=== PATIENT | female | born 1975 | race Caucasian/White ===

== ENCOUNTER 2021-05-09 23:48 | Inpatient (IN) | payer OTHER ==
[~2021-05-09] VITALS: Ht 157.5 cm; Wt 77.6 kg
[~2021-05-09 23:48] MED LIST: ACET-784 PO
[2021-05-10 00:52] LABS: COVID AG,FIA SOURCE NASOPHARYNGEAL
[2021-05-10] MEDS ORDERED: HYDROCODONE/ACETAMINOPHEN 5-325 MG TABLET PO ONE (02:45)
[2021-05-10] MEDS ORDERED: IBUPROFEN 600 MG TABLET PO ONE (02:45)
[2021-05-10] MEDS ORDERED: GuaiFENesin/D-METHORPHAN [SUGAR-FREE] 200-20MG/10 ML SYRUP UDCUP PO ONE (02:45)
[2021-05-10 04:50] LABS: BASOPHILS % (AUTO) 0.4 % (0.0-2.0); EOSINOPHILS % (AUTO) 0.4 % (1.0-6.0); HEMATOCRIT 32.9 % (36-46); HEMOGLOBIN 10.8 g/dL (12.0-16.0); LYMPHOCYTES # (AUTO) 0.9 K/uL (1.0-4.8); LYMPHOCYTES % (AUTO) 16.6 % (22.0-44.0); MEAN CORPUSCULAR HEMOGLOBIN 22.3 pg (26.0-34.0); MEAN CORPUSCULAR HGB CONC 32.8 G/dL (31.0-37.0); MEAN CORPUSCULAR VOLUME 68 fL (80-100); MONOCYTES # (AUTO) 0.4 K/uL (0.1-1.0); MONOCYTES % (AUTO) 7.5 % (2.0-9.0); NEUTROPHILS # (AUTO) 3.9 K/uL (1.8-7.7); NEUTROPHILS % (AUTO) 75.1 % (40.0-70.0); PLATELET COUNT (AUTO) 256 K/uL (150-450); RED BLOOD CELL COUNT(AUTO) 4.85 MIL/uL (4.00-5.20); RED CELL DISTRIBUTION WIDTH 19.7 % (11.5-14.5)
[2021-05-10 05:11] LABS: CALCIUM, TOTAL 8.4 mg/dL (8.8-10.5); POTASSIUM 3.5 mmol/L (3.5-5.1)
[2021-05-10 05:19] LABS: LACTIC ACID 0.9 mmol/L (0.4-2.0)
[2021-05-10 05:26] LABS: ALBUMIN 2.9 g/dL (3.4-5.0); BILIRUBIN,TOTAL 0.3 mg/dL (0.1-1.0); TOTAL PROTEIN, SERUM 6.9 g/dL (6.4-8.2)
[2021-05-10] MEDS ORDERED: DEXAMETHASONE SOD PHOS 4 MG/ML 5 ML VIAL IVP ONE (05:45)
[2021-05-10] MEDS ORDERED: ONDANSETRON HCL 4 MG/2 ML VIAL IVP PRN (06:30)
[2021-05-10] MEDS ORDERED: RINGERS SOLUTION,LACTATED 1,000 ML IV ONE (07:45)
[2021-05-10] MEDS ORDERED: REMDESIVIR 200 MG in SODIUM CHLORIDE 0.9% 250 ML IV ONE (08:00)
[2021-05-10] MEDS ORDERED: OXYGEN THERAPY IH SCH (08:00)
[2021-05-10 14:30] VITALS: BP 91/53
[2021-05-10] MEDS: HEPARIN SODIUM,PORCINE 5,000 UNITS/ML VIAL SQ SCH ×2 (15:35→23:49)
[2021-05-10 17:05] VITALS: BP 107/60
[2021-05-10 20:00] VITALS: BP 105/66
[2021-05-10] MEDS: BENZONATATE 100 MG CAPSULE PO PRN (21:18)
[2021-05-10] MEDS: ACETAMINOPHEN 325 MG TABLET PO PRN (21:34)
[2021-05-11] VITALS (7 sets, daily range): BP systolic 90–111; BP diastolic 48–65
[2021-05-11] MEDS ORDERED: SODIUM CHLORIDE 0.9% 250 ML IV ONE (05:39)
[2021-05-11] MEDS ORDERED: SODIUM CHLORIDE 0.9% 100 ML ONE (08:37)
[2021-05-11] MEDS: HEPARIN SODIUM,PORCINE 5,000 UNITS/ML VIAL SQ SCH ×3 (08:44→23:36)
[2021-05-11] MEDS: REMDESIVIR 100 MG in SODIUM CHLORIDE 0.9% 250 ML IV SCH (08:44)
[2021-05-11] MEDS: DEXAMETHASONE SOD PHOS 4 MG/ML VIAL IVP SCH (08:48)
[2021-05-11] MEDS: BENZONATATE 100 MG CAPSULE PO PRN ×2 (08:48→20:11)
[2021-05-11] MEDS: ACETAMINOPHEN 325 MG TABLET PO PRN ×2 (08:49→20:16)
[2021-05-11 08:50] LABS: ANION GAP 7 mmol/L (8-16); CARBON DIOXIDE 27 mmol/L (22-29); CHLORIDE 103 mmol/L (98-107); GLUCOSE,RANDOM 129 mg/dL (70-110); SODIUM SERUM 137 mmol/L (136-145); UREA NITROGEN, BLOOD 12 mg/dL (7-18)
[2021-05-11 08:51] LABS: ALANINE AMINOTRANSFERASE 24 U/L (12-78); ALBUMIN 2.6 g/dL (3.4-5.0); ALKALINE PHOSPHATASE 91 U/L (46-116); ASPARTATE AMINOTRANSFERASE 28 U/L (15-37); BILIRUBIN,TOTAL 0.2 mg/dL (0.1-1.0); CALCIUM, TOTAL 8.5 mg/dL (8.8-10.5); GLOMERULAR FILTR. RATE CALC > 60 mL/min (>60); TOTAL PROTEIN, SERUM 6.5 g/dL (6.4-8.2)
[2021-05-11] MEDS ORDERED: REMDESIVIR 100 MG in SODIUM CHLORIDE 0.9% 250 ML IV SCH (12:30)
[2021-05-12 03:55] VITALS: BP 94/54
[2021-05-12 06:39] LABS: ALANINE AMINOTRANSFERASE 25 U/L (12-78); ALBUMIN 2.5 g/dL (3.4-5.0); ALKALINE PHOSPHATASE 81 U/L (46-116); ANION GAP 7 mmol/L (8-16); ASPARTATE AMINOTRANSFERASE 23 U/L (15-37); BILIRUBIN,TOTAL 0.2 mg/dL (0.1-1.0); CALCIUM, TOTAL 8.3 mg/dL (8.8-10.5); CARBON DIOXIDE 27 mmol/L (22-29); CHLORIDE 104 mmol/L (98-107); CREATININE 0.72 mg/dL (0.60-1.30); GLOMERULAR FILTR. RATE CALC > 60 mL/min (>60); GLUCOSE,RANDOM 100 mg/dL (70-110); POTASSIUM 3.9 mmol/L (3.5-5.1); SODIUM SERUM 138 mmol/L (136-145); TOTAL PROTEIN, SERUM 6.2 g/dL (6.4-8.2); UREA NITROGEN, BLOOD 16 mg/dL (7-18)
[2021-05-12 07:37] VITALS: BP 127/93
[2021-05-12] MEDS: DEXAMETHASONE SOD PHOS 4 MG/ML VIAL IVP SCH (09:30)
[2021-05-12] MEDS: REMDESIVIR 100 MG in SODIUM CHLORIDE 0.9% 250 ML IV SCH (09:30)
[2021-05-12] MEDS: HEPARIN SODIUM,PORCINE 5,000 UNITS/ML VIAL SQ SCH ×3 (09:30→23:30)
[2021-05-12 12:35] VITALS: BP 99/36
[2021-05-12 15:48] VITALS: BP 110/65
[2021-05-12] MEDS: BENZONATATE 100 MG CAPSULE PO PRN (19:55)
[2021-05-12 23:15] VITALS: BP 136/79
[2021-05-12] MEDS: ACETAMINOPHEN 325 MG TABLET PO PRN (23:34)
[2021-05-13] MEDS: ZOLPIDEM TARTRATE 5 MG TABLET PO PRN ×2 (01:14→23:27)
[2021-05-13 03:33] VITALS: BP 123/77
[2021-05-13 06:42] LABS: ALANINE AMINOTRANSFERASE 31 U/L (12-78); ALBUMIN 2.5 g/dL (3.4-5.0); ALKALINE PHOSPHATASE 88 U/L (46-116); ANION GAP 5 mmol/L (8-16); ASPARTATE AMINOTRANSFERASE 22 U/L (15-37); BILIRUBIN,TOTAL 0.2 mg/dL (0.1-1.0); C-REACTIVE PROTEIN QUANT 1.51 mg/dL (0.00-0.30); CALCIUM, TOTAL 8.4 mg/dL (8.8-10.5); CARBON DIOXIDE 28 mmol/L (22-29); CHLORIDE 105 mmol/L (98-107); CREATININE 0.74 mg/dL (0.60-1.30); GLOMERULAR FILTR. RATE CALC > 60 mL/min (>60); GLUCOSE,RANDOM 91 mg/dL (70-110); POTASSIUM 4.1 mmol/L (3.5-5.1); SODIUM SERUM 138 mmol/L (136-145); TOTAL PROTEIN, SERUM 6.1 g/dL (6.4-8.2); UREA NITROGEN, BLOOD 18 mg/dL (7-18)
[2021-05-13 07:44] VITALS: BP 101/58
[2021-05-13] MEDS: REMDESIVIR 100 MG in SODIUM CHLORIDE 0.9% 250 ML IV SCH (08:28)
[2021-05-13] MEDS: DEXAMETHASONE SOD PHOS 4 MG/ML VIAL IVP SCH (08:28)
[2021-05-13] MEDS: HEPARIN SODIUM,PORCINE 5,000 UNITS/ML VIAL SQ SCH ×3 (08:28→23:27)
[2021-05-13 11:47] VITALS: BP 108/55
[2021-05-13 15:29] VITALS: BP 108/56
[2021-05-13 19:20] VITALS: BP 100/67
[2021-05-13] MEDS: ACETAMINOPHEN 325 MG TABLET PO PRN (23:27)
[2021-05-14] VITALS (7 sets, daily range): BP systolic 105–127; BP diastolic 64–76
[2021-05-14 07:06] LABS: ALANINE AMINOTRANSFERASE 37 U/L (12-78); ALBUMIN 2.6 g/dL (3.4-5.0); ALKALINE PHOSPHATASE 108 U/L (46-116); ANION GAP 3 mmol/L (8-16); ASPARTATE AMINOTRANSFERASE 26 U/L (15-37); BILIRUBIN,TOTAL 0.2 mg/dL (0.1-1.0); CALCIUM, TOTAL 8.4 mg/dL (8.8-10.5); CARBON DIOXIDE 28 mmol/L (22-29); CHLORIDE 104 mmol/L (98-107); CREATININE 0.71 mg/dL (0.60-1.30); GLOMERULAR FILTR. RATE CALC > 60 mL/min (>60); GLUCOSE,RANDOM 112 mg/dL (70-110); POTASSIUM 3.5 mmol/L (3.5-5.1); SODIUM SERUM 135 mmol/L (136-145); TOTAL PROTEIN, SERUM 6.5 g/dL (6.4-8.2); UREA NITROGEN, BLOOD 13 mg/dL (7-18)
[2021-05-14] MEDS: HEPARIN SODIUM,PORCINE 5,000 UNITS/ML VIAL SQ SCH ×3 (09:00→23:06)
[2021-05-14] MEDS: REMDESIVIR 100 MG in SODIUM CHLORIDE 0.9% 250 ML IV SCH (09:00)
[2021-05-14] MEDS: DEXAMETHASONE SOD PHOS 4 MG/ML VIAL IVP SCH (09:01)
[2021-05-14] MEDS: BENZONATATE 100 MG CAPSULE PO PRN ×2 (09:12→23:07)
[2021-05-14] MEDS: ACETAMINOPHEN 325 MG TABLET PO PRN (23:07)
[2021-05-15 03:40] VITALS: BP 133/61
[2021-05-15] MEDS: ACETAMINOPHEN 325 MG TABLET PO PRN (03:44)
[2021-05-15] MEDS: DEXAMETHASONE SOD PHOS 4 MG/ML VIAL IVP SCH (08:26)
[2021-05-15] MEDS: HEPARIN SODIUM,PORCINE 5,000 UNITS/ML VIAL SQ SCH (08:26)
[2021-05-15 09:29] VITALS: BP 120/65
== END 2021-05-15 11:20 | disposition home or self-care (01) | DRG 137 ==
LOC: EMS 23:50 → 5N 05-10 12:40
PROVIDERS: ADMIT Internal Medicine; ATTEND Internal Medicine
PROC: XW033E5 Introduction of Remdesivir Anti-infective into Peripheral Vein, Percutaneous Approach, New Technology Group 5 (ICD-10-PCS; principal; 2021-05-10)
DX: U07.1 COVID-19 (principal); J96.01 Acute respiratory failure with hypoxia; J12.82 Pneumonia due to coronavirus disease 2019; I95.9 Hypotension, unspecified; E87.1 Hypo-osmolality and hyponatremia; E66.9 Obesity, unspecified; J06.9 Acute upper respiratory infection, unspecified; Z82.49 Family history of ischemic heart disease and other diseases of the circulatory system; Z83.3 Family history of diabetes mellitus; Z90.49 Acquired absence of other specified parts of digestive tract; Z68.31 Body mass index [BMI] 31.0-31.9, adult
CPT/HCPCS: 71045; 80053; 82550; 83605; 83690; 84300; 84703; 85025; 85379; 86140; 87040; 99291; J1100; J1644; J7050; Q9967; 36415-L1; 36415-TC; U0003

== ENCOUNTER 2023-04-22 19:04 | Emergency (ER) | payer OTHER ==
[~2023-04-22] VITALS: Ht 157.5 cm; Wt 77.3 kg
[2023-04-22 19:27] VITALS: TEMP 99
[2023-04-22] MEDS ORDERED: ACETAMINOPHEN 500 MG TABLET PO ONE (19:45)
[2023-04-22] MEDS ORDERED: IBUPROFEN 600 MG TABLET PO ONE (19:45)
[2023-04-22 20:14] LABS: COVID AG,FIA SOURCE NASAL SWAB
[2023-04-22] MEDS ORDERED: BENZONATATE 100 MG CAPSULE PO ONE (20:30)
[2023-04-22 20:33] LABS: SARS-COV2 (COVID) ANTIGEN,FIA Negative (Negative)
[2023-04-22 20:36] LABS: INFLUENZA TYPE A NEGATIVE FOR TYPE A (NEGATIVE); INFLUENZA TYPE B NEGATIVE FOR TYPE B (NEGATIVE)
[2023-04-22] MEDS ORDERED: ACET-3385 PO (20:39)
[2023-04-22] MEDS ORDERED: IBUP-1492 PO (20:39)
[2023-04-22 20:41] VITALS: BP 97/50; PULSE 102; RESP 17
[2023-04-22] MEDS ORDERED: BENZ-227 PO (20:46)
== END 2023-04-22 21:03 | disposition home or self-care (01) ==
LOC: EMS 19:05
DX: B34.9 Viral infection, unspecified (principal); R05.9 Cough, unspecified; Z20.822 Contact with and (suspected) exposure to COVID-19
CPT/HCPCS: 71045; 87804; 99284

== ENCOUNTER 2024-06-16 20:34 | Emergency (ER) | payer SELFPAY ==
[~2024-06-16] VITALS: Ht 157.5 cm; Wt 77.0 kg
[~2024-06-16 20:34] MED LIST changes: +ACET-3385 PO; +BENZ-227 PO; +IBUP-1492 PO
[2024-06-16 20:50] VITALS: BP 117/59; PULSE 122; RESP 20; TEMP 101.2; O2SAT 98
[2024-06-16] MEDS: ACETAMINOPHEN 500 MG TABLET PO ONE (21:07)
[2024-06-16] MEDS ORDERED: AMOX250C4 PO (21:30)
[2024-06-16] MEDS ORDERED: OSEL75CA45 PO (21:30)
[2024-06-16 21:39] LABS: COVID AG,FIA SOURCE NASAL SWAB
[2024-06-16] MEDS: TraMADol HCL 50 MG TABLET PO ONE (21:48)
[2024-06-16] MEDS: IBUPROFEN 600 MG TABLET PO ONE (21:58)
[2024-06-16 22:02] LABS: SARS-COV2 (COVID) ANTIGEN,FIA Negative (Negative)
[2024-06-16 22:03] LABS: INFLUENZA TYPE B NEGATIVE FOR TYPE B (NEGATIVE)
[2024-06-16 22:15] LABS: INFLUENZA TYPE A POSITIVE FOR TYPE A (NEGATIVE)
== END 2024-06-16 22:31 | disposition home or self-care (01) ==
LOC: EMS 20:38
DX: H66.92 Otitis media, unspecified, left ear (principal); J11.1 Influenza due to unidentified influenza virus with other respiratory manifestations; Z90.49 Acquired absence of other specified parts of digestive tract; Z20.822 Contact with and (suspected) exposure to COVID-19
CPT/HCPCS: 87804; 99284; Z7502; Z7610